=== PATIENT | female | born 1995 | race American Indian/Alaskan Native ===

== ENCOUNTER 2018-10-06 15:52 | Emergency (ER) | payer OTHER ==
--- NOTE | 2018-10-06 16:34 | Event Note ---
ED Screening Note Date of service: 10/06/18 Time: 16:31 ED Screening Note: This is a 22 y.o. F. that presents to the ER with abdominal pain and vaginal bleeding x 1 day. Patient is 7 weeks gestation and followed by [facility]. She is wearing a panty liner. This initial assessment/diagnostic orders/clinical plan/treatment(s) is/are subject to change based on patients health status, clinical progression and re- assessment by fellow clinical providers in the ED. Further treatment and workup at subsequent clinical providers discretion. Patient/guardian urged not to elope from the ED as their condition may be serious if not clinically assessed and managed. Initial orders include: Labs and OB US
[2018-10-06 17:05] LABS: Basophils # (Auto) 0.1 K/mm3 (0.0-0.1); Basophils % (Auto) 0.6 % (0.0-1.8); Eosinophils # (Auto) 0.1 K/mm3 (0.0-0.4); Eosinophils % (Auto) 0.4 % (0.0-4.3); Hematocrit 37.2 % (30.3-42.9); Hemoglobin 11.8 gm/dl (10.1-14.3); Lymphocytes # (Auto) 1.9 K/mm3 (1.2-5.4); Lymphocytes % (Auto) 15.1 % (13.4-35.0); Mean Corpuscular HGB Conc 32 % (30-34); Mean Corpuscular Volume 77 fl (79-97); Monocytes # (Auto) 0.9 K/mm3 (0.0-0.8); Monocytes % (Auto) 6.6 % (0.0-7.3); Platelet Count 382 K/mm3 (140-440); Red Blood Count 4.84 M/mm3 (3.65-5.03); Red Cell Distribution Width 19.6 % (13.2-15.2)
[2018-10-06 17:08] LABS: Bacteria,Urine 4+ /HPF (Negative); Bilirubin,Urine NEG (Negative); Blood,Urine SM (Negative); Color,Urine Yellow (Yellow); Mucus,Urine 3+ /HPF; Urobilinogen,Urine < 2.0 mg/dL (<2.0)
--- NOTE | 2018-10-06 19:23 | Ultrasound Report ---
Pelvic and OB Ultrasound HISTORY: 7 wks gest, vaginal bleeding and abd pain. TECHNIQUE: Grayscale and color Doppler imaging performed. COMPARISON: None FINDINGS: Transabdominal and endovaginal imaging was performed. The uterus measures 8.9 x 6.2 x 7.7 cm and contains an intrauterine gestational sac and a fetus with crown-rump length measuring 1.4 cm. This correlates with an EGA of 7 weeks and 5 days. Heart rate is 145 bpm. A yolk sac is also present. The ovaries appear unremarkable except for a simple cyst on the left measuring 1.3 cm. No pelvic free fluid or acute abnormality. IMPRESSION: 1. Single viable intrauterine gestation as outlined above. 2. Simple left ovarian cyst, possibly functional. Signer Name: Joel Velázquez MD Signed: 10/06/2018 7:18 PM Workstation Name: [id number]
[2018-10-06] MEDS ORDERED: TYLENOL PO ONE (19:39)
[2018-10-06] MEDS ORDERED: KEFLEX PO ONE (19:39)
--- NOTE | 2018-10-06 19:58 | Emergency Department Report ---
ED Female HPI - General Chief complaint: Vaginal Bleeding Stated complaint: 7WKS /VAGINAL BLEEDING/CRAMPS Time Seen by Provider: 10/06/18 16:31 Source: patient Mode of arrival: Ambulatory Limitations: No Limitations - History of Present Illness Initial comments: Patient is a A1 22-year-old [place] female who is approximately 7 weeks gestation who presents to the ED with complaint of acute onset persistent pelvic pain with vaginal spotting for the last 2 days. Patient states that the pain is constant and crampy, and no vaginal bleeding is mild and spotting. Patient states that the bleeding has not even filled her sanitary pads. Patient denies dizziness, fever, chills, nausea, vomiting, dysuria, urinary frequency and urgency, headache, low back pain, vaginal discharge, cough or headache. MD Complaint: vaginal bleeding, pelvic pain -: Sudden, days(s) (2) Location: suprapubic, other (vaginal) Radiation: non-radiating Severity: moderate Severity scale (0 -10): 5 Quality: cramping, aching Consistency: constant Improves with: none Worsens with: none Are you Now?: Yes (7 weeks gestation) Associated Symptoms: denies other symptoms, vaginal bleeding, abdominal pain. denies: vaginal discharge, nausea/vomiting, fever/chills, headaches, loss of appetite, dysuria, hematuria, rash, seizure, shortness of breath, syncope, weakness - Related Data Sexually active: Yes : 2 Para: 0 A: 1 Previous Rx's Medication Instructions Recorded Last Taken Type cephALEXin [Keflex] 500 mg PO Q6HR #40 capsule 10/06/18 Unknown Rx Allergies Allergy/AdvReac Type Severity Reaction Status Date / Time No Known Allergies Allergy Unverified 10/06/18 15:54 ED Review of Systems ROS: Stated complaint: 7WKS /VAGINAL BLEEDING/CRAMPS Other details as noted in HPI Constitutional: denies: chills, fever Eyes: denies: eye pain, eye discharge, vision change ENT: denies: ear pain, throat pain Respiratory: denies: cough, shortness of breath, wheezing Cardiovascular: denies: chest pain, palpitations Endocrine: no symptoms reported Gastrointestinal: abdominal pain. denies: nausea, diarrhea Genitourinary: other (Vaginal bleeding; Pelvic pain). denies: urgency, dysuria, discharge Musculoskeletal: denies: back pain, joint swelling, arthralgia Skin: denies: rash, lesions Neurological: denies: headache, weakness, paresthesias Psychiatric: denies: anxiety, depression Hematological/Lymphatic: denies: easy bleeding, easy bruising ED Past Medical Hx - Past Medical History Previous Medical History?: No - Surgical History Past Surgical History?: No - Social History Smoking Status: Never Smoker - Medications Home Medications: Home Medications Medication Instructions Recorded Confirmed Last Taken Type cephALEXin [Keflex] 500 mg PO Q6HR #40 capsule 10/06/18 Unknown Rx ED Physical Exam - General Limitations: No Limitations General appearance: alert, in no apparent distress - Head Head exam: Present: atraumatic, normocephalic, normal inspection - Eye Eye exam: Present: normal appearance, PERRL, EOMI. Absent: scleral icterus, periorbital swelling, periorbital tenderness Pupils: Present: normal accommodation - ENT ENT exam: Present: normal exam, normal orophraynx, mucous membranes moist, TM's normal bilaterally, normal external ear exam - Neck Neck exam: Present: normal inspection, full ROM - Respiratory Respiratory exam: Present: normal lung sounds bilaterally. Absent: respiratory distress, wheezes, rales, stridor, chest wall tenderness, accessory muscle use, decreased breath sounds - Cardiovascular Cardiovascular Exam: Present: normal rhythm, tachycardia, normal heart sounds. Absent: systolic murmur, diastolic murmur, rubs, gallop - GI/Abdominal GI/Abdominal exam: Present: soft, normal bowel sounds. Absent: tenderness, guarding, rebound, hypoactive bowel sounds, organomegaly - Rectal Rectal exam: Present: deferred - Bi-manual exam: Present: other (Pelvic exam deferred, patient declined) - Extremities Exam Extremities exam: Present: normal inspection, full ROM, normal capillary refill - Back Exam Back exam: Present: normal inspection, full ROM. Absent: tenderness, CVA tenderness (R), CVA tenderness (L), muscle spasm, paraspinal tenderness, vertebral tenderness - Neurological Exam Neurological exam: Present: alert, oriented X3, CN II-XII intact, normal gait, reflexes normal - Psychiatric Psychiatric exam: Present: normal affect, normal mood - Skin Skin exam: Present: warm, dry, intact, normal color. Absent: rash ED Course Vital Signs 10/06/18 15:54 Temperature 98.6 F Pulse Rate 101 H Respiratory 16 Rate Blood Pressure 126/77 O2 Sat by Pulse 99 Oximetry - Reevaluation(s) Reevaluation #1: 10/06/18 20:03 Patient is alert and oriented 3 and is not in distress. Lab test results show acute leukocytosis of 12,900, and hCG Quant of [id number], and urinalysis shows acute urinary tract infection. The ABO / Rhesus was 0 positive. Transvaginal ultrasound shows a single viable IUP gestation of approximately 7 weeks and 5 days, and the heart rate is 145 bpm. The ovaries appear unremarkable except for her symptoms ceased on the left which measures 1.3 cm. There is no free fluid or acute abnormality. Patient was treated for pain in the ED and also given initial antibiotics for acute urinary tract infection in the ED. Patient was discharged home on antibiotics for acute urinary tract infection and advised to take Tylenol as needed for pain. The patient was also advised to maintain a complete pelvic rest and follow-up with [facility] physician in 2 days for reevaluation. Patient was also advised to return to the ED immediately if her symptoms get worse. ED Medical Decision Making - Lab Data Result diagrams: 10/06/18 16:34 - Radiology Data Radiology results: report reviewed, image reviewed Transvaginal US: Shows single viable IUP gestation approximately 7 weeks and 5 days with a heart rate of 145 bpm. There are normal pelvic free fluid or acute abnormality. The ovaries are unremarkable except for a simple ovarian cyst in the left measuring 1.3 cm. - Medical Decision Making Patient is alert and oriented 3 and is not in distress. Lab test results show acute leukocytosis of 12,900, and hCG Quant of [id number], and urinalysis shows acute urinary tract infection. The ABO / Rhesus was 0 positive. Transvaginal ultrasound shows a single viable IUP gestation of approximately 7 weeks and 5 days, and the heart rate is 145 bpm. The ovaries appear unremarkable except for her symptoms ceased on the left which measures 1.3 cm. There is no free fluid or acute abnormality. Patient was treated for pain in the ED and also given initial antibiotics for acute urinary tract infection in the ED. Patient was discharged home on antibiotics for acute urinary tract infection and advised to take Tylenol as needed for pain. The patient was also advised to maintain a complete pelvic rest and follow-up with [facility] physician in 2 days for reevaluation. Patient was also advised to return to the ED immediately if her symptoms get worse. - Differential Diagnosis Threatened Miscarriage; Pelvic pain; Acute UTI Critical care attestation.: If time is entered above; I have spent that time in minutes in the direct care of this critically ill patient, excluding procedure time. ED Disposition Clinical Impression: Threatened miscarriage in early , Acute urinary tract infection, Abdominal pain during intrauterine Disposition: TO HOME OR SELFCARE Is pt being admited?: No Does the pt Need Aspirin: No Condition: Stable Instructions: Urinary Tract Infection in Women (ED), Threatened Miscarriage (ED), Abdominal Pain in (ED) Additional Instructions: Maintain a complete pelvic rest. Take medications with food, drink plenty of fluids and follow-up with the [facility] physician in 2 days for reevaluation. Return to the ED immediately if symptoms get worse. Prescriptions: cephALEXin [Keflex] 500 mg PO Q6HR #40 capsule Referrals: JACOB SNYDER MD [Primary Care Provider] - 3-5 Days Time of Disposition: 19:56 Print Language: HEBREW
[2018-10-06 20:16] VITALS: BP 107/66
== END 2018-10-06 20:16 | disposition home or self-care (01) ==
LOC: ED 15:52
DX: O20.0 Threatened abortion (principal); O23.41 Unspecified infection of urinary tract in pregnancy, first trimester; Z3A.01 Less than 8 weeks gestation of pregnancy
CPT/HCPCS: 36415; 76801; 76817; 81001; 84702; 85025; 86900; 86901; 87086